=== PATIENT | female | born 1955 | race Two or more races ===

== ENCOUNTER 2019-02-15 06:27 | Inpatient (IN) | payer MEDICARE, OTHER ==
[~2019-02-15] VITALS: Ht 157.5 cm; Wt 65.3 kg
--- NOTE | 2019-02-15 06:40 | NUR ---
PT BIBSELF FROM HOME C/C "I NEED DIALYSIS. MY DOCTOR TOLD ME I CANT WAIT UNTIL MONDAY". PT DENIES CP, SOB, AND -N/V/D. NO COMPLAINTS AT THIS TIME. PT AOX4. NAD NOTED. RESP EVEN AND UNLABORED. WILL CONTINUE TO MONITOR.
--- NOTE | 2019-02-15 06:47 | NUR ---
CALLED [facility]. GRINDER SET UP OPERATOR INTERNAL WAS PAGED.
[2019-02-15 07:55] LABS: BASOPHILS # (AUTO) 0.1 /CMM (0.0-0.2); BASOPHILS % (AUTO) 0.9 % (0.0-2.0); EOSINOPHILS % (AUTO) 3.9 % (0.0-6.0); HEMATOCRIT 34 % (33-45); HEMOGLOBIN 10.9 g/dL (11.5-14.8); LYMPHOCYTES # (AUTO) 1.1 /CMM (0.8-4.8); LYMPHOCYTES % (AUTO) 15.4 % (20.0-44.0); MEAN CORPUSCULAR HGB CONC 32 g/dl (31.0-36.0); MEAN CORPUSCULAR VOLUME 97 fL (82-100); MONOCYTES # (AUTO) 0.5 /CMM (0.1-1.30); MONOCYTES % (AUTO) 7.6 % (2.0-12.0); NEUTROPHILS # (AUTO) 5.2 /CMM (1.8-8.9); NEUTROPHILS % (AUTO) 72.2 % (43.0-81.0); PLATELET COUNT (AUTO) 160 /CMM (150-450); RED BLOOD CELL COUNT(AUTO) 3.54 MIL/uL (4.0-5.2); WHITE BLOOD COUNT (AUTO) 7.2 K/uL (4.3-11.0)
[2019-02-15] MEDS ORDERED: CALC667C6 PO (07:56)
[2019-02-15] MEDS ORDERED: TRAM50TA2 PO (07:56)
[2019-02-15] MEDS ORDERED: METO50TA16 PO (07:56)
[2019-02-15] MEDS ORDERED: GABA-532 PO (07:56)
[2019-02-15] MEDS ORDERED: ASPI-1169 PO (07:56)
[2019-02-15] MEDS ORDERED: ATOR10TA PO (07:56)
[2019-02-15] MEDS ORDERED: GLIP10TA11 PO (07:56)
[2019-02-15 08:03] LABS: POTASSIUM 4.8 mmol/L (3.5-5.1)
--- NOTE | 2019-02-15 08:21 | NUR ---
Paged Dr. Ambrose for admission
--- NOTE | 2019-02-15 08:58 | NUR ---
Report given to Nina BROOKS for continuity of care on [facility] floor
--- NOTE | 2019-02-15 09:15 | NUR ---
RECEIVED PT A/O X4, AMBULATORY. PT ADMITTED FOR HD. SKIN INTACT. ADM. NOTIFIED
[2019-02-15 09:17] VITALS: BP 141/63
[2019-02-15 09:25] VITALS: BP 141/63
[2019-02-15] MEDS ORDERED: TRAMADOL HCL 50 MG TABLET PO PRN (10:00)
[2019-02-15] MEDS ORDERED: ZOLPIDEM TARTRATE 5 MG TABLET PO PRN (10:00)
[2019-02-15] MEDS ORDERED: Z GUARD REMEDY 2 OZ OINT TP PRN (10:00)
[2019-02-15] MEDS ORDERED: ACETAMINOPHEN 325 MG TABLET PO PRN (10:00)
[2019-02-15] MEDS ORDERED: MAGNESIUM HYDROXIDE 30 ML UDC PO PRN (10:00)
[2019-02-15] MEDS ORDERED: MAG HYDROX/AL HYDROX/SIMETH 30 ML UDC PO PRN (10:00)
[2019-02-15] MEDS ORDERED: HYDROCODONE/APAP 5/325MG 1 EACH TABLET PO PRN (10:00)
[2019-02-15] MEDS ORDERED: ONDANSETRON HCL/PF 4 MG/2 ML VIAL IVP PRN (10:00)
[2019-02-15] MEDS ORDERED: CALCIUM ACETATE 667 MG TABLET PO SCH (13:00)
--- NOTE | 2019-02-15 13:26 | NUR ---
BEDSIDE HD FINISHED WITH OUTPUT 1000L. PATIENT A/OX4 , VS ARE STABLE , ON ROOM AIR.
--- NOTE | 2019-02-15 15:00 | NUR ---
PATIENT CLEARED FOR D/C BY . PATIENT A/OX4 , AMBULATORY, VS ARE STABLE AND WITHIN NORMAL RANGE, NO SKIN ISSUES. PATIENT RECEIVED D/C INSTRUCTIONS AND VERBALIZED UNDERSTANDING.ALL BELONGINGS WITH PATIENT AND VALUABLE FORM SIGNED BY PATIENT. DC INSTRUCTIONS SIGHED BY PATIENT. IV LINE REMOVED, NO BLEEDING/REDNESS /SWELLING NOTED. ID WRIST BAND REMOVED. PATIENT CALLED [facility] AND WAS SAFELY TRANSPORTED TO THE CAR VIA WHEELCHAIR ACCOMPANIED BY SPIN TABLE OPERATOR.
[2019-02-15] MEDS ORDERED: GABAPENTIN 100 MG CAPSULE PO SCH (17:00)
[2019-02-15] MEDS ORDERED: METOPROLOL TARTRATE 50 MG TABLET PO SCH (17:00)
[2019-02-15] MEDS ORDERED: ATORVASTATIN 10 MG TABLET PO SCH (18:00)
[2019-02-16] MEDS ORDERED: ASPIRIN 81 MG TAB.CHEW PO SCH (09:00)
[2019-02-16] MEDS ORDERED: glipiZIDE 10 MG TABLET PO SCH (09:00)
== END 2019-02-15 15:00 | disposition home or self-care (01) | DRG 682 ==
LOC: ER 06:37 → MEDSG2 09:05
PROVIDERS: ADMIT Internal Medicine Nephrology; ATTEND Family Medicine
PROC: 5A1D70Z Performance of Urinary Filtration, Intermittent, Less than 6 Hours Per Day (ICD-10-PCS; principal; 2019-02-15)
DX: I12.0 Hypertensive chronic kidney disease with stage 5 chronic kidney disease or end stage renal disease (principal); N18.6 End stage renal disease; D63.8 Anemia in other chronic diseases classified elsewhere; E11.22 Type 2 diabetes mellitus with diabetic chronic kidney disease; Z87.891 Personal history of nicotine dependence; Z99.2 Dependence on renal dialysis; Z79.84 Long term (current) use of oral hypoglycemic drugs; Z79.82 Long term (current) use of aspirin; G62.9 Polyneuropathy, unspecified; E78.5 Hyperlipidemia, unspecified; E78.00 Pure hypercholesterolemia, unspecified; Z79.899 Other long term (current) drug therapy; Z83.3 Family history of diabetes mellitus
CPT/HCPCS: 36415; 80048-TC; 85025-TC; 87081-TC; 90935-TC; G0378